=== PATIENT | male | born 1995 | race African-American/Black ===

== ENCOUNTER 2016-09-14 18:50 | Inpatient (IN) | payer OTHER ==
[~2016-09-14] VITALS: Ht 175.3 cm; Wt 83.9 kg
[2016-09-14] MEDS ORDERED: [UNRECOGNIZED DRUG - OTHER] PO (19:05)
[2016-09-14 21:27] LABS: MEAN CORPUSCULAR HEMOGLOBIN 29.2 pg (27.0-33.0); MEAN CORPUSCULAR HGB CONC 32.9 g/dl (32.0-36.5); MEAN CORPUSCULAR VOLUME 88.6 fl (80.0-96.0); RED CELL DISTRIBUTION WIDTH 13.7 % (11.5-14.5); WHITE BLOOD COUNT 5.3 K/mm3 (4.0-10.0)
[2016-09-14 22:00] LABS: ALBUMIN 4.8 GM/DL (3.2-5.2); ALBUMIN/GLOBULIN RATIO 1.26 (1.00-1.93); ALKALINE PHOSPHATASE 96 U/L (45-117); ALT/SGPT 31 U/L (12-78); ANION GAP 9 MEQ/L (8-16); AST/SGOT 25 U/L (15-37); BILIRUBIN,DIRECT 0.1 MG/DL (0.0-0.2); BILIRUBIN,TOTAL 0.7 MG/DL (0.2-1.0); BLOOD UREA NITROGEN 14 MG/DL (7-18); CALCIUM LEVEL 9.2 MG/DL (8.5-10.1); CARBON DIOXIDE LEVEL 28 MEQ/L (21-32); CHLORIDE LEVEL 103 MEQ/L (98-107); CREATININE FOR GFR 0.92 MG/DL (0.70-1.30); GLOMERULAR FILTRATION RATE > 60.0 (>60); GLUCOSE, FASTING 77 MG/DL (70-105); POTASSIUM SERUM 3.8 MEQ/L (3.5-5.1); SODIUM LEVEL 140 MEQ/L (136-145); TOTAL PROTEIN 8.6 GM/DL (6.4-8.2)
[2016-09-14 22:18] LABS: CONTROL LINE INT CTR LINE PRESENT; METHADONE URINE NEGATIVE (NEGATIVE); TRICYCLIC ANTIDEPRESS URINE NEGATIVE (NEGATIVE)
[2016-09-14] MEDS ORDERED: [UNRECOGNIZED DRUG - OTHER] PO (23:49)
[2016-09-15] MEDS ORDERED: LORazepam 1 MG TAB PO PRN (00:15)
[2016-09-15] MEDS ORDERED: MAALOX 30 ML SUSP *UDC PO PRN (00:15)
[2016-09-15] MEDS ORDERED: ACETAMINOPHEN TAB 650MG DOSE (2X325MG) PO PRN (00:15)
[2016-09-15] MEDS ORDERED: MOM 30ML SUSPENSION UDC PO PRN (00:15)
[2016-09-15 01:44] VITALS: BP 132/82
--- NOTE | 2016-09-15 10:31 | HPEPDOC ---
Medical History and Physical Date of Admission Sep 14, 2016 at 22:56 History and Physical PCP: [facility] ATTENDING: Dr. Abhay Red HPI: 21yoM admitted to [facility] for unspecified depressive disorder, being medically examined today. No acute medical complaints today. Denies any fevers, chills, weakness, fatigue, TIRADO, CP, SOB, cough, palpitations, abdominal pain, N/V /D or changes in bowel or bladder habits. 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 PE: GEN: 21 yoM, appears stated age. Well-nourished, well developed. No acute distress. Alert and oriented x 3. Pleasant, interactive. HEENT: Normocephalic, atraumatic. Pupils are equal, round, and reactive to light. Extraocular movements are intact. No nystagmus appreciated. Sclera are nonicteric. Conjunctiva without injection. Nose midline. Nasal turbinates without bogginess. EACs both patent BL. TMs both visualized and villasenor with good cone of light, no bulging or erythema. No facial asymmetry. Moist mucous membranes. Dentition fair. Pharynx pink and moist, no cobblestoning. Neck supple , trachea midline. No lymphadenopathy or thyromegaly appreciated. CHEST: Regular rate and rhythm, +S1, +S2 LUNGS: Clear to auscultation bilaterally. No wheezes, rales, or rhonchi. Breathing appears symmetric and easy. Patient is speaking in full sentences. No accessory muscle use. ABD: Round, soft, non-tender, non-distended. +Bowel sounds throughout. No rebound or guarding. No costovertebral angle tenderness. EXT: Pulses 2+ bilaterally dorsalis pedis and radial. No lower extremity edema appreciated. SKIN: [place], dry, warm. Capillary refill <2sec. No rashes. NEURO: Alert and oriented x 3. Cranial nerves III-XII are intact. No focal deficits appreciated. EK09/07/15 SINUS BRADYCARDIA 48bpm EARLY REPOLARIZATION NO PRIOR FOR COMPARISON A&P: 21yoM admitted to [facility] for unspecified depressive disorder 1. Psych. Plan per Psychiatry. EKG on file. 2. Borderline EKG. No cardiac signs or symptoms appreciated on exam, follow with PCP. 3. Follow up with PCP on discharge. 4. abn TSH. Recheck TSH/Free T4. 5. Staff member present throughout exam, imani Ramos. Vital Signs Vital Signs Label Value Date Time Patient Temperature 95.9 degrees F 09/15/16 014 Temperature Source Tympanic 09/15/16 014 Pulse 52 09/15/16 014 Respiratory Rate 18 bpm 09/15/16 014 Blood Pressure Assessment 132/82 (99) 09/15/16 0144 Laboratory Data Labs 24H Laboratory Tests 2 09/14/16 21:17: Acetaminophen Level < 2.0L, Aspartate Amino Transf (AST/SGOT) 25, Alanine Aminotransferase (ALT/SGPT) 31, Alkaline Phosphatase 96, Total Bilirubin 0.7, Direct Bilirubin 0.1, Albumin 4.8, Albumin/Globulin Ratio 1.26, Anion Gap 9, Calcium Level 9.2, Ethyl Alcohol Level < 0.003, Glomerular Filtration Rate > 60.0, Salicylates Level < 1.7L, Thyroid Stimulating Hormone (TSH) 5.450H, Total Protein 8.6H 09/14/16 21:36: Urine Amphetamines Screen NEGATIVE, Urine Benzodiazepines Screen NEGATIVE, Urine Opiates Screen NEGATIVE, Urine Barbiturates Screen NEGATIVE, Urine Cannabinoids Screen NEGATIVE, Urine Cocaine Metabolite Screen NEGATIVE, Urine Methadone Screen NEGATIVE, Urine Tricyclic Antidepressants NEGATIVE CBC/BMP Laboratory Tests 09/14/16 21:17 Red Blood Count 4.96, Mean Corpuscular Volume 88.6, Mean Corpuscular Hemoglobin 29.2, Mean Corpuscular Hemoglobin Concent 32.9, Red Cell Distribution Width 13.7 Home Medications Scheduled ([Hydroxycut Hardcore]) 1 CAP PO DAILY Allergies Coded Allergies: Penicillins (Verified Allergy, Unknown, 09/14/16) Marly Newman Sep 15, 2016 10:31
[2016-09-15 12:00] VITALS: BP 130/80
[2016-09-15] MEDS ORDERED: FLUoxetine 10 MG CAP PO ONE (16:15)
[2016-09-15 18:00] VITALS: BP 120/71
[2016-09-15] MEDS: hydrOXYzine 50 MG TAB PO PRN (20:36)
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
[2016-09-16 06:37] VITALS: BP 123/74
[2016-09-16] MEDS ORDERED: FLUoxetine 20 MG CAP PO SCH (09:00)
[2016-09-16] MEDS ORDERED: FLUoxetine 10 MG CAP PO SCH (09:00)
[2016-09-16 12:39] LABS: FREE T4 0.94 NG/DL (0.76-1.46)
[2016-09-16] MEDS: hydrOXYzine 50 MG TAB PO PRN (14:04)
[2016-09-16 18:00] VITALS: BP 118/60
--- NOTE | 2016-09-16 18:14 | IPNPDOC ---
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 Toy Maker met with patient today to assess treatment progress on inpatient unit. Patient has been isolating to room, has not been attending groups, is observed to be sleeping in bed but is easily roused and sits up to meet with sign writer letterer or painter for assessment purposes. Patient rates his current anxiety level is 7/10, depression 8/10, denies suicidal and homicidal ideation, denies audiovisual hallucinations, and denies urge to engage in self-injurious behavior. Patient denies symptoms of mood lability. Toy Maker spoke at length with patient about ER notes indicating 's report of erratic sleep, rapid mood swings, stomach and genitalia discomfort. Patient denies stomach discomfort, endorses erratic sleep but attributes to stress and depression, denies rapid mood swings noting, "that's what my says to make me feel like there is something wrong with me and when she wants me to go get help," indicates he experiences intermittent testicular pain but only after working out. Patient denies anger at time of assessment, but indicates prior to hospitalization he had been experiencing anger multiple times per day, however, denies rapid change to mood in the absence of situational stressors. Patient took second dose of Prozac this morning, denies medication side effects. Patient denies symptoms of pain at time of interaction and presents with no sign of acute distress. Patient states he has had telephone contact with his which resulted in an argument, notes he is not sure if he wants to continue the relationship. 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 VITAL SIGNS: See below. NEW TEST RESULTS: No new results. Patient denies chronic medical conditions, denies history of seizure and TBI. Labs on admission indicate low PLT, elevated TSH and protein. TSH within normal limits on recheck. UDS negative on admission EKG pending CURRENT MEDICATIONS: See below. MENTAL STATUS EXAMINATION: Patient is a 21-year-old male who is pleasant and cooperative, dressed in hospital clothing, exhibits adequate personal hygiene, makes good eye contact , is of average build, has been observed ambulating with steady gait, and appears stated age. Speech: Is of normal rate, rhythm, volume, coherent, spontaneous Language skills are intact. Thought processes: Clear, goal-directed. Thought content: Rational, logical, no paranoia noted. Abstract reasoning, and computation: Requires further assessment. Description of associations: Intact. Description of abnormal or psychotic thoughts: denies hallucinations, delusions , preoccupation with violence, homicidal or suicidal ideation, and obsessions]. Judgment: Poor. Insight: Poor. Orientation to time, place and person. Recent and remote memory: Appears intact Attention span and concentration: Within normal limits. Language: Normal. Fund of knowledge: Adequate. Mood: "Depressed." Appears depressed, anxious, no mood lability noted, no anger noted Affect: Blunted, congruent with mood DIAGNOSES: Unspecified mood disorder, rule out major depressive disorder, rule out bipolar disorder, rule out adjustment disorder with mixed anxiety and depressed mood, rule out PTSD ASSESSMENT: Patient appears to be adjusting to unit, was encouraged to attend groups and participate in unit programming to facilitate the development of coping mechanisms and reduce isolative behavior. Patient has utilized hydroxyzine 50 mg 2 to address anxiety/sleep challenges, notes medication is effective and denies medication side effects. Patient is currently taking Prozac 10 mg po q am, denies medication side effects, will increase dose to 20 mg po q am starting tomorrow. Patient is aware he also has trazodone available to him for sleep if desired. Will monitor patient's response to medication and watch for mood instability, monitor for side effects, and evaluate for resolution of suicidal ideation and discharge readiness. Patient denies suicidal ideation and verbalizes awareness of how to access supportive services on the unit if needed. Patient reiterates today at time of discharge he wants to return to [place] to participate in outpatient behavioral health for psychotherapy and medication management services. MANAGEMENT PLAN: Increase Prozac to 20 mg po q am, continue hydroxyzine 50 mg po q 6 hours PRN anxiety/sleep Maintain safety precautions Patient to attend groups and participate in unit programming to develop coping strategies Engage patient in discharge planning process and arrange meeting with command to ensure safe discharge planning when appropriate Patient to follow up with [facility] upon discharge TIME SPENT: 35 minutes. Vital Signs Vital Signs Date Time Temp Pulse Resp B/P Pulse Ox O2 Delivery O2 Flow Rate FiO2 09/16/16 06:37 95.9 77 16 123/74 09/15/16 00:28 99 Room Air Laboratory Data 24H Labs Laboratory Tests 2 09/16/16 11:39: Free Thyroxine 0.94, Thyroid Stimulating Hormone (TSH) 1.360 Current Medications Current Medications Acetaminophen (Tylenol Tab) 650 mg Q6HP PRN PO HEADACHE or DISCOMFORT; Start at 00:15; Stop 10/15/16 at 00:14 Al Hydrox/Mg Hydrox/Simethicone (Mylanta) 30 ml Q4HP PRN PO HEARTBURN/ INDIGESTION; Start 09/15/16 at 00:15; Stop 10/15/16 at 00:14 Fluoxetine HCl (PROzac) 10 mg QAM PO Last administered on 09/16/16 09:17; Start 09/16/16 at 09:00; Stop 10/16/16 at 08:59 Fluoxetine HCl (PROzac) 20 mg QAM PO ; Start 09/16/16 at 09:00; Stop 09/16/16 at 09:00; Status DC Home Med (Med Rec Complete!) ASDIRECTED XX ; Start 09/15/16 at 00:00; Stop at 00:00; Status DC Hydroxyzine HCl (Atarax) 50 mg Q6HP PRN PO ANXIETY Last administered on 14:04; Start 09/15/16 at 16:30; Stop 10/15/16 at 16:29 Lorazepam (Ativan) 1 mg Q4HP PRN PO ANXIETY/AGITATION; Start 09/15/16 at 00:15; Stop 09/22/16 at 00:14 Magnesium Hydroxide (Milk Of Magnesia) 30 ml DAILYPRN PRN PO CONSTIPATION; Start 09/15/16 at 00:15; Stop 10/15/16 at 00:14 Trazodone HCl (Desyrel) 50 mg QHSP PRN PO INSOMNIA; Start 09/15/16 at 00:15; Stop 10/15/16 at 00:14 Allergies Coded Allergies: Penicillins (Verified Allergy, Unknown, 09/14/16) Rosana Mclaughlin Sep 16, 2016 18:14
[2016-09-16] MEDS: traZODone 50 MG TAB PO PRN (21:09)
[2016-09-17 07:23] VITALS: BP 107/58
[2016-09-17] MEDS: FLUoxetine 20 MG CAP PO SCH (08:15)
[2016-09-17] MEDS: hydrOXYzine 50 MG TAB PO PRN ×2 (08:15→20:46)
--- NOTE | 2016-09-17 13:58 | IPNPDOC ---
[facility] Progress Note Progress Note DATE OF SERVICE: 09/17/16 HISTORY: Patient is a 21-year-old, , father of 1 child, [employer] duty [employer] who reportedly while arguing with his indicated that he was going to kill himself. Product Development Coordinator met with patient today to assess treatment progress on inpatient unit. Patient has been isolating to room, has not been attending groups, is observed to be sleeping in bed but is easily roused and sits up to meet with typewriter ribbon winder for assessment purposes. Patient informs typewriter ribbon winder today he is "thinking about may be attending a group today." Patient rates his current anxiety level is 5/10, depression 8/10, denies suicidal and homicidal ideation, denies audiovisual hallucinations, and denies urge to engage in self- injurious behavior. Patient denies symptoms of anger and mood lability. Patient took increased Prozac dose this morning, utilized Trazodone fr sleep last night and has been taking hydroxyzine 50 mg approximately one time per day for symptoms of anxiety. Patient reports improvement to sleep and denies nightmares. Patient informs typewriter ribbon winder "I might be starting to feel little better today," indicates medication regimen is helpful and he denies medication side effects. Patient states he also spoke with his yesterday and conversation went well, is today requesting visitation with his 3-month-old child over the weekend. Patient denies symptoms of pain at time of interaction and presents with no sign of acute distress. Addendum: With patient's permission and signed MAVERICK, update provided to patient' s first sergeant regarding patient's treatment status. VITAL SIGNS: See below. NEW TEST RESULTS: No new results. Patient denies chronic medical conditions, denies history of seizure and TBI. Labs on admission indicate low PLT, elevated TSH and protein. TSH within normal limits on recheck. UDS negative on admission EK09/07/15 SINUS BRADYCARDIA 48bpm EARLY REPOLARIZATION NO PRIOR FOR COMPARISON CURRENT MEDICATIONS: See below. MENTAL STATUS EXAMINATION: Patient is a 21-year-old male who is pleasant and cooperative, dressed in hospital clothing, exhibits adequate personal hygiene, makes fair eye contact , is of average build, has been observed ambulating with steady gait, and appears stated age. Speech: Is of normal rate, rhythm, volume, coherent, spontaneous Language skills are intact. Thought processes: Clear, goal-directed. Thought content: Rational, logical, no paranoia noted. Abstract reasoning, and computation: Requires further assessment. Description of associations: Intact. Description of abnormal or psychotic thoughts: denies hallucinations, delusions , preoccupation with violence, homicidal or suicidal ideation, and obsessions]. Judgment: Poor. Insight: Poor. Orientation to time, place and person. Recent and remote memory: Appears intact Attention span and concentration: Within normal limits. Language: Normal. Fund of knowledge: Adequate. Mood: "I'm still depressed but maybe a little less depressed today." Appears depressed, anxious, no mood lability noted, no anger noted Affect: Blunted, congruent with mood DIAGNOSES: Unspecified mood disorder, rule out major depressive disorder, rule out bipolar disorder, rule out adjustment disorder with mixed anxiety and depressed mood, rule out PTSD ASSESSMENT: Patient appears to be adjusting to unit but has not been attending groups, was again encouraged to attend groups and participate in unit programming to facilitate the development of coping mechanisms and reduce isolative behavior. Patient has utilized hydroxyzine 50 mg PRN to address anxiety and Trazodone 50 mg PRN to address sleep challenges, notes medication is effective. Patient is now taking Prozac 20 mg po q am, denies medication side effects. Will continue to monitor patient's response to medication and watch for mood instability, monitor for side effects, and evaluate for resolution of suicidal ideation and discharge readiness. Patient denies suicidal ideation and verbalizes awareness of how to access supportive services on the unit if needed. Patient reiterates today at time of discharge he wants to return to [place] to participate in outpatient behavioral health for psychotherapy and medication management services. MANAGEMENT PLAN: Continue Prozac 20 mg po q am, hydroxyzine 50 mg po q 6 hours PRN anxiety/sleep, trazodone 50 mg po q 6 hours PRN anxiety Patient's and 3-month-old baby may visit in quite group room during visitation hours over weekend at staff discretion Maintain safety precautions Patient to attend groups and participate in unit programming to develop coping strategies Engage patient in discharge planning process and arrange meeting with command to ensure safe discharge planning when appropriate Patient to follow up with [facility] upon discharge TIME SPENT: 35 minutes. Vital Signs Vital Signs Date Time Temp Pulse Resp B/P Pulse Ox O2 Delivery O2 Flow Rate FiO2 09/17/16 07:23 95.4 52 18 107/58 09/15/16 00:28 99 Room Air Current Medications Current Medications Acetaminophen (Tylenol Tab) 650 mg Q6HP PRN PO HEADACHE or DISCOMFORT; Start at 00:15; Stop 10/15/16 at 00:14 Al Hydrox/Mg Hydrox/Simethicone (Mylanta) 30 ml Q4HP PRN PO HEARTBURN/ INDIGESTION; Start 09/15/16 at 00:15; Stop 10/15/16 at 00:14 Fluoxetine HCl (PROzac) 10 mg QAM PO Last administered on 09/16/16 09:17; Start 09/16/16 at 09:00; Stop 09/16/16 at 18:18; Status DC Fluoxetine HCl (PROzac) 20 mg QAM PO ; Start 09/16/16 at 09:00; Stop 09/16/16 at 09:00; Status DC Fluoxetine HCl (PROzac) 20 mg QAM PO Last administered on 09/17/16 08:15; Start 09/17/16 at 09:00; Stop 10/17/16 at 08:59 Home Med (Med Rec Complete!) ASDIRECTED XX ; Start 09/15/16 at 00:00; Stop at 00:00; Status DC Hydroxyzine HCl (Atarax) 50 mg Q6HP PRN PO ANXIETY Last administered on 08:15; Start 09/15/16 at 16:30; Stop 10/15/16 at 16:29 Lorazepam (Ativan) 1 mg Q4HP PRN PO ANXIETY/AGITATION; Start 09/15/16 at 00:15; Stop 09/22/16 at 00:14 Magnesium Hydroxide (Milk Of Magnesia) 30 ml DAILYPRN PRN PO CONSTIPATION; Start 09/15/16 at 00:15; Stop 10/15/16 at 00:14 Trazodone HCl (Desyrel) 50 mg QHSP PRN PO INSOMNIA Last administered on 21:09; Start 09/15/16 at 00:15; Stop 10/15/16 at 00:14 Allergies Coded Allergies: Penicillins (Verified Allergy, Unknown, 09/14/16) Rosana Mclaughlin Sep 17, 2016 13:58
[2016-09-17 18:00] VITALS: BP 124/68
[2016-09-17] MEDS: traZODone 50 MG TAB PO PRN (20:46)
[2016-09-18 06:54] VITALS: BP 125/63
[2016-09-18] MEDS: hydrOXYzine 50 MG TAB PO PRN ×3 (08:36→21:21)
[2016-09-18] MEDS: FLUoxetine 20 MG CAP PO SCH (08:36)
[2016-09-18 18:00] VITALS: BP 113/62
[2016-09-19 06:00] VITALS: BP 125/78
[2016-09-19] MEDS: hydrOXYzine 50 MG TAB PO PRN ×3 (08:22→21:20)
[2016-09-19] MEDS: FLUoxetine 20 MG CAP PO SCH (08:22)
--- NOTE | 2016-09-19 09:36 | IPN ---
DATE: 09/18/2016 SUBJECTIVE: " I am feeling better." "I am sleeping a lot." OBJECTIVE: Patient is improving slowly, he is less depressed, he is able to contract for safety, and denies suicidal or homicidal ideation during the interview. There is no evidence of psychotic symptoms, no auditory or visual hallucinations or delusions. MENTAL STATUS EXAMINATION: Patient is dressed in [facility]. Patient is cooperative during the exam. Speech is slow and monotone but improving. Mood is depressed but improved. Affect is somewhat restricted. No delusions or hallucinations. Memory is fair. Patient is fully oriented. Associations are intact. Thinking is logical. Thought content is appropriate. Patient is able to contract for safety and denies suicidal or homicidal ideation during the interview. Insight and judgment is fair. ASSESSMENT: 1. Depression. 2. Suicidal ideation. PLAN: 1. Continue with Prozac 20 mg by mouth every morning. 2. Continue with trazodone 50 mg at bedtime. 3. Continue medication management and individual and group and therapy.
[2016-09-19 18:00] VITALS: BP 136/84
[2016-09-19] MEDS: traZODone 50 MG TAB PO PRN (21:20)
[2016-09-20 06:23] VITALS: BP 114/57
[2016-09-20] MEDS: FLUoxetine 20 MG CAP PO SCH (08:05)
[2016-09-20] MEDS: hydrOXYzine 50 MG TAB PO PRN ×2 (08:06→15:29)
[2016-09-20 18:00] VITALS: BP 121/69
[2016-09-20] MEDS: traZODone 50 MG TAB PO PRN (21:15)
--- NOTE | 2016-09-21 02:27 | IPN ---
DATE: 09/19/2016 SUBJECTIVE: " I am feeling better." OBJECTIVE: Patient reports improvement. Patient denies feeling depressed. Patient denies suicidal ideation. There is no evidence of psychotic symptoms, no auditory or visual hallucinations or delusions. Patient denies side effects from the medication. MENTAL STATUS EXAMINATION: Patient is dressed in [facility]. Patient is calm and cooperative, has fair eye contact. Speech is normal in rate, volume and articulation and is coherent and spontaneous. Mood is euthymic. Affect is congruent with mood. No delusions or hallucinations. Memory is fair. Patient is fully oriented. Associations are intact. Thinking is logical. Thought content is appropriate. Patient is denying suicidal or homicidal ideation. Insight and judgment are fair. ASSESSMENT: 1. Depression. 2. Suicidal ideation. PLAN: 1. Continue Prozac 20 mg by mouth every morning. 2. Continue trazodone as needed for insomnia. 3. Continue medication management and individual and group and therapy.
[2016-09-21 06:28] VITALS: BP 132/80
[2016-09-21] MEDS: hydrOXYzine 50 MG TAB PO PRN ×3 (07:58→20:52)
[2016-09-21] MEDS: FLUoxetine 20 MG CAP PO SCH (07:58)
[2016-09-21] MEDS: traZODone 50 MG TAB PO PRN (20:52)
--- NOTE | 2016-09-21 21:03 | IPNPDOC ---
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 Rubber Chemist met with patient today to assess treatment progress on inpatient unit. Patient continues to isolate to room, indicates to advertising writer he does not enjoy being in the group setting and does not intend to attend groups. Patient informs advertising writer that his brother is coming to visit for a week tomorrow, is requesting discharge to spend time with his brother, his and his child. Patient indicates he and have "worked things out," states he feels being at home with his brother and would be beneficial to his mental health, adds he would like to begin attending marital counseling with his . Patient reports current depression level of 5/10, anxiety 3/10, notes he has been taking Atarax as needed to address symptoms of anxiety with good effect. Patient denies suicidal and homicidal ideation, denies audiovisual hallucinations, denies urge to engage in self-injurious behavior. Patient indicates current medication regimen is effective noting, "I'm not angry anymore and I feel more understanding when I'm talking with my ." Patient denies symptoms of mood lability, continues to take trazodone for sleep with good effect, denies current symptoms of nightmares, today reports history of nightmares prior to hospitalization. Patient denies symptoms of physical pain at time of interaction and presents with no sign of acute distress. Addendum: With patient's permission and signed MAVERICK, update provided to patient' s first sergeant regarding patient's treatment status. VITAL SIGNS: See below. NEW TEST RESULTS: No new results. Patient denies chronic medical conditions, denies history of seizure and TBI. Labs on admission indicate low PLT, elevated TSH and protein. TSH within normal limits on recheck. UDS negative on admission EK09/07/15 SINUS BRADYCARDIA 48bpm EARLY REPOLARIZATION NO PRIOR FOR COMPARISON CURRENT MEDICATIONS: See below. MENTAL STATUS EXAMINATION: Patient is a 21-year-old male who is pleasant and cooperative, dressed in hospital clothing, exhibits adequate personal hygiene, makes improved eye contact, is of average build, has been observed ambulating with steady gait, and appears stated age. Speech: Is of normal rate, rhythm, volume, coherent, spontaneous Language skills are intact. Thought processes: Clear, goal-directed. Thought content: Rational, logical, no paranoia noted. Abstract reasoning, and computation: Requires further assessment. Description of associations: Intact. Description of abnormal or psychotic thoughts: denies hallucinations, delusions , preoccupation with violence, homicidal or suicidal ideation, and obsessions]. Judgment: Fair, some improvement Insight: Adequate, is improving Orientation to time, place and person. Recent and remote memory: Appears intact Attention span and concentration: Within normal limits. Language: Normal. Fund of knowledge: Adequate. Mood: "I still feel depressed sometimes but I'm able to deal with it better now and I'm feeling better." Appears less depressed and anxious, no mood lability noted, no anger noted Affect: Constricted, congruent with mood DIAGNOSES: Unspecified mood disorder, rule out major depressive disorder, rule out bipolar disorder, rule out adjustment disorder with mixed anxiety and depressed mood, rule out PTSD ASSESSMENT: Patient appears to be adjusting to unit but has not been attending groups, was again encouraged to attend groups and participate in unit programming to facilitate the development of coping mechanisms and reduce isolative behavior. Patient has utilized hydroxyzine 50 mg PRN to address anxiety and Trazodone 50 mg PRN to address sleep challenges, notes medication is effective. Patient continues to take Prozac 20 mg po q am, denies medication side effects, notes medication is helping. Will continue to monitor patient's response to medication and watch for mood instability, monitor for side effects , and evaluate for resolution of suicidal ideation and discharge readiness. Patient denies suicidal ideation and verbalizes awareness of how to access supportive services on the unit if needed. Patient reiterates today at time of discharge he wants to return to [place] to participate in outpatient behavioral health for psychotherapy and medication management services. research coordinator has been asked to arranged chain of command meeting in an effort to begin making discharge plans for patient. MANAGEMENT PLAN: Continue Prozac 20 mg po q am, hydroxyzine 50 mg po q 6 hours PRN anxiety/sleep, trazodone 50 mg po q hs for insomnia Patient's and 3-month-old baby may visit in quite group room during visitation hours over weekend at staff discretion Maintain safety precautions Patient to attend groups and participate in unit programming to develop coping strategies Engage patient in discharge planning process and arrange meeting with command to ensure safe discharge planning when appropriate Patient to follow up with [facility] upon discharge TIME SPENT: 35 minutes. Vital Signs Vital Signs Date Time Temp Pulse Resp B/P Pulse Ox O2 Delivery O2 Flow Rate FiO2 09/21/16 06:28 96.0 70 16 132/80 09/18/16 08:53 Room Air 09/15/16 00:28 99 Current Medications Current Medications Acetaminophen (Tylenol Tab) 650 mg Q6HP PRN PO HEADACHE or DISCOMFORT; Start at 00:15; Stop 10/15/16 at 00:14 Al Hydrox/Mg Hydrox/Simethicone (Mylanta) 30 ml Q4HP PRN PO HEARTBURN/ INDIGESTION; Start 09/15/16 at 00:15; Stop 10/15/16 at 00:14 Fluoxetine HCl (PROzac) 10 mg QAM PO Last administered on 09/16/16 09:17; Start 09/16/16 at 09:00; Stop 09/16/16 at 18:18; Status DC Fluoxetine HCl (PROzac) 20 mg QAM PO ; Start 09/16/16 at 09:00; Stop 09/16/16 at 09:00; Status DC Fluoxetine HCl (PROzac) 20 mg QAM PO Last administered on 09/21/16 07:58; Start 09/17/16 at 09:00; Stop 10/17/16 at 08:59 Home Med (Med Rec Complete!) ASDIRECTED XX ; Start 09/15/16 at 00:00; Stop at 00:00; Status DC Hydroxyzine HCl (Atarax) 50 mg Q6HP PRN PO ANXIETY Last administered on 20:52; Start 09/15/16 at 16:30; Stop 10/15/16 at 16:29 Lorazepam (Ativan) 1 mg Q4HP PRN PO ANXIETY/AGITATION Last administered on 21:15; Start 09/15/16 at 00:15; Stop 09/21/16 at 12:11; Status DC Magnesium Hydroxide (Milk Of Magnesia) 30 ml DAILYPRN PRN PO CONSTIPATION; Start 09/15/16 at 00:15; Stop 10/15/16 at 00:14 Trazodone HCl (Desyrel) 50 mg QHSP PRN PO INSOMNIA Last administered on t 20:52; Start 09/15/16 at 00:15; Stop 10/15/16 at 00:14 Allergies Coded Allergies: Penicillins (Verified Allergy, Unknown, 09/14/16) Rosana Mclaughlin Sep 21, 2016 21:02
[2016-09-21 22:21] VITALS: BP 143/80
[2016-09-22 06:23] VITALS: BP 131/82
[2016-09-22] MEDS: FLUoxetine 20 MG CAP PO SCH (08:03)
[2016-09-22] MEDS: hydrOXYzine 50 MG TAB PO PRN (08:03)
[2016-09-22] MEDS ORDERED: HYDRO50TAB PO (09:34)
[2016-09-22] MEDS ORDERED: FLUO20CA9 PO (09:34)
[2016-09-22] MEDS ORDERED: TRAZO50TA PO (09:34)
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
[2016-09-22] MEDS ORDERED: PROZ20CA11 PO (13:44)
[2016-09-22] MEDS ORDERED: TRAZ50TA4 PO (13:44)
[2016-09-22] MEDS ORDERED: HYDR-4274 PO (13:44)
== END 2016-09-22 11:15 | disposition home or self-care (01) | DRG 882 ==
LOC: M ED 22:00 → M ED INP 22:56 → M PSY 09-15 00:32
PROVIDERS: ADMIT Psychiatry & Neurology Psychiatry; ATTEND Psychiatry & Neurology Psychiatry
DX: F43.23 Adjustment disorder with mixed anxiety and depressed mood (principal); R45.851 Suicidal ideations; F31.9 Bipolar disorder, unspecified; F43.10 Post-traumatic stress disorder, unspecified; R94.6 Abnormal results of thyroid function studies; R94.31 Abnormal electrocardiogram [ECG] [EKG]; Z81.8 Family history of other mental and behavioral disorders; Z88.0 Allergy status to penicillin; Z79.899 Other long term (current) drug therapy

== ENCOUNTER 2016-11-05 00:19 | Inpatient (IN) | payer OTHER ==
[~2016-11-05] VITALS: Ht 175.3 cm; Wt 84.8 kg
[~2016-11-05 00:19] MED LIST: FLUO20CA9 PO; HYDR-4274 PO; HYDRO50TAB PO; PROZ20CA11 PO; TRAZ50TA4 PO; TRAZO50TA PO; [UNRECOGNIZED DRUG - OTHER] PO; [UNRECOGNIZED DRUG - OTHER] PO
[2016-11-05 00:59] LABS: MEAN CORPUSCULAR HEMOGLOBIN 28.9 pg (27.0-33.0); MEAN CORPUSCULAR VOLUME 87.5 fl (80.0-96.0); RED CELL DISTRIBUTION WIDTH 12.9 % (11.5-14.5); WHITE BLOOD COUNT 5.3 K/mm3 (4.0-10.0)
[2016-11-05 01:26] LABS: METHADONE URINE NEGATIVE (NEGATIVE)
[2016-11-05 01:29] LABS: ALBUMIN 4.1 GM/DL (3.2-5.2); ALBUMIN/GLOBULIN RATIO 1.11 (1.00-1.93); ALKALINE PHOSPHATASE 75 U/L (45-117); ALT/SGPT 52 U/L (12-78); ANION GAP 11 MEQ/L (8-16); AST/SGOT 44 U/L (15-37); BILIRUBIN,DIRECT < 0.1 MG/DL (0.0-0.2); BILIRUBIN,TOTAL 0.3 MG/DL (0.2-1.0); BLOOD UREA NITROGEN 9 MG/DL (7-18); CALCIUM LEVEL 8.7 MG/DL (8.5-10.1); CARBON DIOXIDE LEVEL 27 MEQ/L (21-32); CHLORIDE LEVEL 103 MEQ/L (98-107); CREATININE FOR GFR 0.86 MG/DL (0.70-1.30); GLOMERULAR FILTRATION RATE > 60.0 (>60); GLUCOSE, FASTING 121 MG/DL (70-105); POTASSIUM SERUM 3.4 MEQ/L (3.5-5.1); SODIUM LEVEL 141 MEQ/L (136-145); TOTAL PROTEIN 7.8 GM/DL (6.4-8.2)
[2016-11-05] MEDS ORDERED: TRAZ100T4 PO (02:14)
[2016-11-05] MEDS ORDERED: GABA-282 PO (02:14)
[2016-11-05] MEDS ORDERED: LEXA1TAB2 PO (02:14)
[2016-11-05] MEDS ORDERED: ACAM0.05 PO (02:14)
[2016-11-05] MEDS ORDERED: MOM 30ML SUSPENSION UDC PO PRN (02:15)
[2016-11-05] MEDS ORDERED: MAALOX 30 ML SUSP *UDC PO PRN (02:15)
[2016-11-05 03:00] VITALS: BP 129/87
[2016-11-05] MEDS: FOLIC ACID 1 MG TAB PO SCH (09:00)
[2016-11-05] MEDS: MULTIVITAMINS/MINERALS THERAP 1 TAB PO SCH (09:00)
[2016-11-05] MEDS: THIAMINE 100 MG TAB PO SCH ×2 (09:00→21:01)
[2016-11-05] MEDS ORDERED: LORazepam 2 MG TAB PO PRN (09:30)
--- NOTE | 2016-11-05 09:59 | HPEPDOC ---
Medical History and Physical Date of Admission Nov 05, 2016 at 02:08 History and Physical PCP: [facility] ATTENDING: Dr. Abhay Red HPI: 21yoM admitted to [facility] for unspecified depressive disorder, being medically examined today. No acute medical complaints today. Denies any fevers, chills, weakness, fatigue, TIRADO, CP, SOB, cough, palpitations, abdominal pain, N/V /D or changes in bowel or bladder habits. 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 PE: GEN: 21 yoM, appears stated age. Well-nourished, well developed. No acute distress. Alert and oriented x 3. Pleasant, interactive. HEENT: Normocephalic, atraumatic. Pupils are equal, round, and reactive to light. Extraocular movements are intact. No nystagmus appreciated. Sclera are nonicteric. Conjunctiva without injection. Nose midline. Nasal turbinates without bogginess. EACs both patent BL. TMs both visualized and villas[place]or with good cone of light, no bulging or erythema. No facial asymmetry. Moist mucous membranes. Dentition fair. Pharynx pink and moist, no cobblestoning. Neck supple , trachea midline. No lymphadenopathy or thyromegaly appreciated. CHEST: Regular rate and rhythm, +S1, +S2 LUNGS: Clear to auscultation bilaterally. No wheezes, rales, or rhonchi. Breathing appears symmetric and easy. Patient is speaking in full sentences. No accessory muscle use. ABD: Round, soft, non-tender, non-distended. +Bowel sounds throughout. No rebound or guarding. No costovertebral angle tenderness. EXT: Pulses 2+ bilaterally dorsalis pedis and radial. No lower extremity edema appreciated. SKIN: [place], dry, warm. Capillary refill <2sec. No rashes. NEURO: Alert and oriented x 3. Cranial nerves III-XII are intact. No focal deficits appreciated. EK09/07/15 SINUS BRADYCARDIA 48bpm EARLY REPOLARIZATION NO PRIOR FOR COMPARISON A&P: 21yoM admitted to [facility] for unspecified depressive disorder 1. Psych. Plan per Psychiatry. EKG on file. 2. Borderline EKG. No cardiac signs or symptoms appreciated on exam, follow with PCP. 3. Follow up with PCP on discharge. 4. Abnormal TSH. Recheck thyroid profile. 5. Hypokalemia. Recheck CMP. 6. Abnormal LFT. Recheck CMP 7. 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 Vital Signs Vital Signs Date Time Temp Pulse Resp B/P Pulse Ox O2 Delivery O2 Flow Rate FiO2 11/05/16 03:00 97.3 64 16 129/87 11/05/16 02:50 98 Room Air Laboratory Data Labs 24H Laboratory Tests 2 11/05/16 00:47: Acetaminophen Level < 2.0L, Aspartate Amino Transf (AST/SGOT) 44H, Alanine Aminotransferase (ALT/SGPT) 52, Alkaline Phosphatase 75, Total Bilirubin 0.3, Direct Bilirubin < 0.1, Albumin 4.1, Albumin/Globulin Ratio 1.11, Anion Gap 11, Calcium Level 8.7, Ethyl Alcohol Level 0.006, Glomerular Filtration Rate > 60.0 , Salicylates Level < 1.7L, Thyroid Stimulating Hormone (TSH) 4.960H, Total Protein 7.8, Urine Amphetamines Screen NEGATIVE, Urine Benzodiazepines Screen NEGATIVE, Urine Opiates Screen NEGATIVE, Urine Barbiturates Screen NEGATIVE, Urine Cannabinoids Screen NEGATIVE, Urine Cocaine Metabolite Screen NEGATIVE, Urine Methadone Screen NEGATIVE, Urine Phencyclidine Screen NEGATIVE CBC/BMP Laboratory Tests 11/05/16 00:47 Red Blood Count 4.60, Mean Corpuscular Volume 87.5, Mean Corpuscular Hemoglobin 28.9, Mean Corpuscular Hemoglobin Concent 33.0, Red Cell Distribution Width 12.9 Home Medications Scheduled Acamprosate Calcium (Acamprosate Calcium Dr) 333 Mg Tab 666 MG PO TID Escitalopram Oxalate (Lexapro) 20 Mg Tab 20 MG PO DAILY Gabapentin (Gabapentin) 300 Mg Cap 300 MG PO TID Trazodone HCl (Trazodone HCl) 100 Mg Tab 100 MG PO QHS Allergies Coded Allergies: Penicillins (Verified Allergy, Unknown, 2/28/17) Marly Newman Nov 05, 2016 09:59
[2016-11-05] MEDS: GABAPENTIN 100 MG CAP PO SCH ×2 (11:19→21:01)
[2016-11-05] MEDS: SERTRALINE HCL 50 MG TAB PO SCH (11:19)
[2016-11-05 11:29] LABS: ANION GAP 6 MEQ/L (8-16); BLOOD UREA NITROGEN 10 MG/DL (7-18); CALCIUM LEVEL 8.9 MG/DL (8.5-10.1); CARBON DIOXIDE LEVEL 31 MEQ/L (21-32); CHLORIDE LEVEL 106 MEQ/L (98-107); CREATININE FOR GFR 0.86 MG/DL (0.70-1.30); GLOMERULAR FILTRATION RATE > 60.0 (>60); GLUCOSE, FASTING 96 MG/DL (70-105); POTASSIUM SERUM 4.3 MEQ/L (3.5-5.1); SODIUM LEVEL 143 MEQ/L (136-145)
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
[2016-11-05 18:00] VITALS: BP 115/62
[2016-11-05 18:10] VITALS: BP 60/115
[2016-11-05] MEDS: traZODone 50 MG TAB PO PRN (21:01)
[2016-11-06 06:18] VITALS: BP 128/58
[2016-11-06 07:28] LABS: ALBUMIN 3.8 GM/DL (3.2-5.2); ALBUMIN/GLOBULIN RATIO 1.03 (1.00-1.93); ALKALINE PHOSPHATASE 71 U/L (45-117); ALT/SGPT 58 U/L (12-78); ANION GAP 5 MEQ/L (8-16); AST/SGOT 34 U/L (15-37); BILIRUBIN,TOTAL 0.5 MG/DL (0.2-1.0); BLOOD UREA NITROGEN 12 MG/DL (7-18); CALCIUM LEVEL 8.7 MG/DL (8.5-10.1); CARBON DIOXIDE LEVEL 32 MEQ/L (21-32); CHLORIDE LEVEL 105 MEQ/L (98-107); CREATININE FOR GFR 1.02 MG/DL (0.70-1.30); GLOMERULAR FILTRATION RATE > 60.0 (>60); GLUCOSE, FASTING 92 MG/DL (70-105); POTASSIUM SERUM 4.5 MEQ/L (3.5-5.1); SODIUM LEVEL 142 MEQ/L (136-145); T UPTAKE 37 % (33-40); THYROXINE (T4) 6.7 UG/DL (4.5-12.0); TOTAL PROTEIN 7.5 GM/DL (6.4-8.2)
[2016-11-06] MEDS: FOLIC ACID 1 MG TAB PO SCH (08:27)
[2016-11-06] MEDS: SERTRALINE HCL 50 MG TAB PO SCH (08:27)
[2016-11-06] MEDS: MULTIVITAMINS/MINERALS THERAP 1 TAB PO SCH (08:27)
[2016-11-06] MEDS: THIAMINE 100 MG TAB PO SCH ×2 (08:27→21:13)
[2016-11-06] MEDS: GABAPENTIN 100 MG CAP PO SCH ×3 (08:27→21:13)
[2016-11-06 09:02] VITALS: BP 137/81
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
[2016-11-06 12:00] VITALS: BP 137/81
[2016-11-06] MEDS ORDERED: LOPERAMIDE 2 MG CAP PO PRN (13:30)
[2016-11-06] MEDS ORDERED: LOPERAMIDE 2 MG CAP PO ONE (14:00)
[2016-11-06 18:00] VITALS: BP 142/73
[2016-11-06] MEDS: traZODone 50 MG TAB PO PRN (21:13)
[2016-11-07 06:35] VITALS: BP 145/68
[2016-11-07] MEDS: THIAMINE 100 MG TAB PO SCH ×2 (08:36→21:49)
[2016-11-07] MEDS: FOLIC ACID 1 MG TAB PO SCH (08:36)
[2016-11-07] MEDS: SERTRALINE HCL 25 MG TABLET PO SCH (08:36)
[2016-11-07] MEDS: MULTIVITAMINS/MINERALS THERAP 1 TAB PO SCH (08:36)
[2016-11-07] MEDS: GABAPENTIN 100 MG CAP PO SCH ×3 (08:36→21:49)
[2016-11-07 10:13] VITALS: BP 145/60
[2016-11-07 11:42] VITALS: BP 133/74
--- NOTE | 2016-11-07 13:16 | IPNPDOC ---
[facility] Progress Note Progress Note DATE OF SERVICE: 11/07/16 HISTORY: 21 year old male with history of depression and alcohol abuse who was admitted on because his thought he wanted to overdose and called 911. he was brought to the Emergency room and was admitted to the [facility]. Has been on an antidepressant, Zoloft, because he stated Lexapro was not helping him. Today, he was seen alert, oriented x3, cooperative with interview, with good eye contact and good rapport. His mood is depressed/irritable and his affect is labile. His speech is normal, thought process is coherent, thought content is negative for homicidal ideations, delusional thoughts or altered perceptions, but is positive for passive suicidal thoughts. His recent and remote memory are intact, his abstract reasoning and computation are normal. His impulse control, judgement and insight are still very poor. When he was interviewed he admitted than in a scale from 1-10, his depression was at an 8 and he said he is still irritable, but less than when he was admitted. Denies active suicidal ideation but has passive suicidal ideation, denies homicidal ideation or psychosis. States he is anxious and feels better because he is going to be able to see his 5 month old son. He also states he is feeling slightly better, that he thinks he is having a better response to Zoloft than to Lexapro. VITAL SIGNS: See below. NEW TEST RESULTS: None CURRENT MEDICATIONS: See below. DIAGNOSES: 1. Major Depressive disorder, severe . 2. Substance abuse (alcohol) 3. PTSD ASSESSMENT:Patient is less guarded and defensive, less irritable. Responding to treatment. MANAGEMENT PLAN: continue hospitalization until stabilized.will need group home treatment. TIME SPENT: 15 minutes. Vital Signs Vital Signs Date Time Temp Pulse Resp B/P Pulse Ox O2 Delivery O2 Flow Rate FiO2 11/07/16 11:42 98.6 59 18 133/74 11/05/16 02:50 98 Room Air Current Medications Current Medications Acetaminophen (Tylenol Tab) 650 mg Q6HP PRN PO HEADACHE or DISCOMFORT; Start at 02:15; Stop 12/05/16 at 02:14 Al Hydrox/Mg Hydrox/Simethicone (Mylanta) 30 ml Q4HP PRN PO HEARTBURN/ INDIGESTION; Start 11/05/16 at 02:15; Stop 12/05/16 at 02:14 Folic Acid (Folic Acid) 1 mg DAILY PO Last administered on 11/07/16 08:36; Start 11/05/16 at 09:00; Stop 12/05/16 at 08:59 Gabapentin (Neurontin) 100 mg BID PO Last administered on 11/06/16 08:27; Start 11/05/16 at 09:00; Stop 11/06/16 at 09:21; Status DC Gabapentin (Neurontin) 200 mg TID PO Last administered on 11/07/16 08:36; Start 11/06/16 at 16:00; Stop 12/06/16 at 15:59 Home Med (Med Rec Complete!) ASDIRECTED XX ; Start 11/05/16 at 02:15; Stop at 02:18; Status DC Loperamide HCl (Imodium) 2 mg ASDIRECTED PRN PO DIARRHEA; Start 11/06/16 at 13: 30; Stop 12/06/16 at 13:29 Lorazepam (Ativan) 2 mg ASDIRECTED PRN PO SEE PROTOCOL; Start 11/05/16 at 09:30 ; Stop 11/12/16 at 09:29 Magnesium Hydroxide (Milk Of Magnesia) 30 ml DAILYPRN PRN PO CONSTIPATION; Start 11/05/16 at 02:15; Stop 12/05/16 at 02:14 Multivitamins (Theragram-M) 1 tab DAILY PO Last administered on 11/07/16 08:36 ; Start 11/05/16 at 09:00; Stop 12/05/16 at 08:59 Sertraline HCl (Zoloft) 50 mg QAM PO Last administered on 11/06/16 08:27; Start 11/05/16 at 09:00; Stop 11/06/16 at 09:21; Status DC Sertraline HCl (Zoloft) 75 mg DAILY PO Last administered on 11/07/16 08:36; Start 11/07/16 at 09:00; Stop 12/07/16 at 08:59 Thiamine HCl (Thiamine HCl) 100 mg BID PO Last administered on 11/07/16 08:36 ; Start 11/05/16 at 09:00; Stop 11/07/16 at 23:59 Trazodone HCl (Desyrel) 50 mg QHSP PRN PO INSOMNIA Last administered on t 21:13; Start 11/05/16 at 02:15; Stop 12/05/16 at 02:14 Allergies Coded Allergies: Penicillins (Verified Allergy, Unknown, 09/14/16) RAMIRO AYON MD Nov 07, 2016 13:16
[2016-11-07 18:00] VITALS: BP 130/74
[2016-11-07 21:00] VITALS: BP 128/82
[2016-11-07] MEDS: traZODone 50 MG TAB PO PRN (21:48)
[2016-11-08 06:42] VITALS: BP 115/68
[2016-11-08] MEDS: GABAPENTIN 100 MG CAP PO SCH ×3 (08:17→20:44)
[2016-11-08] MEDS: FOLIC ACID 1 MG TAB PO SCH (08:17)
[2016-11-08] MEDS: MULTIVITAMINS/MINERALS THERAP 1 TAB PO SCH (08:17)
[2016-11-08] MEDS: SERTRALINE HCL 25 MG TABLET PO SCH (08:17)
[2016-11-08 11:27] VITALS: BP 153/64
[2016-11-08 11:30] VITALS: BP 153/64
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
[2016-11-08 18:00] VITALS: BP 125/66
[2016-11-08] MEDS: traZODone 50 MG TAB PO PRN (20:44)
[2016-11-09 06:56] VITALS: BP 115/58
[2016-11-09] MEDS: FOLIC ACID 1 MG TAB PO SCH (08:56)
[2016-11-09] MEDS: SERTRALINE HCL 25 MG TABLET PO SCH (08:56)
[2016-11-09] MEDS: GABAPENTIN 100 MG CAP PO SCH (08:56)
[2016-11-09] MEDS: MULTIVITAMINS/MINERALS THERAP 1 TAB PO SCH (08:56)
[2016-11-09] MEDS: DIVALPROEX 250 MG TAB PO SCH ×2 (16:10→21:29)
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
[2016-11-09 18:00] VITALS: BP 126/79
[2016-11-09] MEDS: traZODone 50 MG TAB PO PRN (21:30)
[2016-11-10 06:33] VITALS: BP 125/58
[2016-11-10] MEDS: SERTRALINE 100 MG TAB PO SCH (08:34)
[2016-11-10] MEDS: DIVALPROEX 250 MG TAB PO SCH ×3 (08:34→20:57)
[2016-11-10] MEDS: FOLIC ACID 1 MG TAB PO SCH (08:34)
[2016-11-10] MEDS: ACETAMINOPHEN TAB 650MG DOSE (2X325MG) PO PRN ×2 (08:34→20:57)
[2016-11-10] MEDS: MULTIVITAMINS/MINERALS THERAP 1 TAB PO SCH (08:34)
[2016-11-10 12:00] VITALS: BP 116/65
[2016-11-10 18:00] VITALS: BP 136/69
[2016-11-10] MEDS: traZODone 50 MG TAB PO PRN (20:57)
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
[2016-11-11 06:35] VITALS: BP 136/63
[2016-11-11] MEDS: ACETAMINOPHEN TAB 650MG DOSE (2X325MG) PO PRN (08:56)
[2016-11-11] MEDS: SERTRALINE 100 MG TAB PO SCH (08:57)
[2016-11-11] MEDS: FOLIC ACID 1 MG TAB PO SCH (08:57)
[2016-11-11] MEDS: DIVALPROEX 250 MG TAB PO SCH ×3 (08:57→20:43)
[2016-11-11] MEDS: MULTIVITAMINS/MINERALS THERAP 1 TAB PO SCH (08:57)
[2016-11-11 09:00] VITALS: BP 136/63
[2016-11-11] MEDS ORDERED: DEPA250T32 PO (12:02)
[2016-11-11] MEDS ORDERED: ABIL5TAB5 PO (12:02)
[2016-11-11] MEDS ORDERED: MAALSUS20 PO (12:02)
[2016-11-11] MEDS ORDERED: MILKSUS PO (12:02)
[2016-11-11] MEDS ORDERED: FOLI1TAB2 PO (12:02)
[2016-11-11] MEDS ORDERED: TRAZ50TA4 PO (12:02)
[2016-11-11] MEDS ORDERED: TYLE325T5 PO (12:02)
[2016-11-11] MEDS ORDERED: ZOLO100T PO (12:02)
[2016-11-11] MEDS ORDERED: THERTAB30 PO (12:02)
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
[2016-11-11 18:00] VITALS: BP 130/73
[2016-11-11] MEDS: traZODone 50 MG TAB PO PRN (20:43)
[2016-11-12] MEDS: MULTIVITAMINS/MINERALS THERAP 1 TAB PO SCH (04:10)
[2016-11-12] MEDS: FOLIC ACID 1 MG TAB PO SCH (04:10)
[2016-11-12] MEDS: DIVALPROEX 250 MG TAB PO SCH (04:10)
[2016-11-12] MEDS: SERTRALINE 100 MG TAB PO SCH (04:10)
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
== END 2016-11-12 04:45 | DRG 882 ==
LOC: M ED 01:25 → M ED INP 02:08 → M PSY 03:00
PROVIDERS: ADMIT Psychiatry & Neurology Psychiatry; ATTEND Psychiatry & Neurology Psychiatry
DX: F43.10 Post-traumatic stress disorder, unspecified (principal); F32.2 Major depressive disorder, single episode, severe without psychotic features; F10.20 Alcohol dependence, uncomplicated; Z79.899 Other long term (current) drug therapy; Z81.8 Family history of other mental and behavioral disorders; E87.6 Hypokalemia; Z63.0 Problems in relationship with spouse or partner; Z62.810 Personal history of physical and sexual abuse in childhood; Z62.811 Personal history of psychological abuse in childhood; Z62.812 Personal history of neglect in childhood; Z88.0 Allergy status to penicillin

== ENCOUNTER 2017-03-22 06:53 | Emergency (ER) | payer OTHER ==
[~2017-03-22] VITALS: Ht 175.3 cm; Wt 90.0 kg
[~2017-03-22 06:53] MED LIST changes: +ABIL1TAB11 PO; +ACAM0.05 PO; +DEPA250T32 PO; +FLUO20CA19 PO; -FLUO20CA9 PO; +FOLI1TAB4 PO; +GABA-282 PO; -HYDR-4274 PO; +HYDR50TA70 PO; +LEXA1TAB2 PO; +MAALSUS20 PO; +MILKSUS PO; +THERTAB30 PO; +TRAZ-136 PO; +TRAZ50TA11 PO; -TRAZ50TA4 PO; +TYLE325T5 PO; +ZOLO100T PO
[2017-03-22] MEDS ORDERED: LITH300C PO (07:06)
[2017-03-22] MEDS ORDERED: VIAG100T PO (07:06)
[2017-03-22] MEDS ORDERED: atarax PO (07:06)
[2017-03-22] MEDS ORDERED: AMBI10TA PO (07:06)
[2017-03-22] MEDS ORDERED: ADDE10CA3 PO (07:06)
[2017-03-22] MEDS ORDERED: PANTOPRAZOLE 40MG INJ (PROTONIX) (C9113) IV ONE (08:15)
[2017-03-22] MEDS ORDERED: SUCRALFATE SUSP 1GM/10ML UD PO ONE (08:15)
[2017-03-22] MEDS ORDERED: ONDANSETRON 4MG/2ML VIAL (J2405) IV ONE (08:15)
[2017-03-22] MEDS ORDERED: NS 1,000 ML IV ONE (08:15)
[2017-03-22 09:05] LABS: BASO % 0.2 % (0.0-1.0); EOS # 0.1 K/mm3 (0.0-0.50); EOS % 0.7 % (0.0-3.0); LARGE UNSTAINED CELL # 0.1 K/mm3 (0.0-0.4); LARGE UNSTAINED CELL % 1.1 % (0.0-4.0); LYMPH # 0.9 K/mm3 (1.5-6.5); MEAN CORPUSCULAR HEMOGLOBIN 30.4 pg (27.0-33.0); MEAN CORPUSCULAR HGB CONC 33.6 g/dl (32.0-36.5); MEAN CORPUSCULAR VOLUME 90.5 fl (80.0-96.0); MONO # 0.4 K/mm3 (0.0-0.8); MONO % 5.2 % (0.0-5.0); NEUTROPHILS # 6.4 K/mm3 (1.8-7.7); NEUTROPHILS % 80.8 % (36.0-66.0); PLATELET COUNT, AUTOMATED 167 k/mm3 (150-450); RED CELL DISTRIBUTION WIDTH 13.3 % (11.5-14.5); WHITE BLOOD COUNT 7.8 K/mm3 (4.0-10.0)
[2017-03-22 09:14] LABS: ALBUMIN 4.3 GM/DL (3.2-5.2); ALBUMIN/GLOBULIN RATIO 1.05 (1.00-1.93); ALKALINE PHOSPHATASE 53 U/L (45-117); ALT/SGPT 54 U/L (12-78); AMYLASE 62 U/L (25-115); ANION GAP 9 MEQ/L (8-16); AST/SGOT 20 U/L (15-37); BILIRUBIN,DIRECT 0.1 MG/DL (0.0-0.2); BILIRUBIN,TOTAL 0.4 MG/DL (0.2-1.0); BLOOD UREA NITROGEN 12 MG/DL (7-18); CALCIUM LEVEL 9.1 MG/DL (8.5-10.1); CARBON DIOXIDE LEVEL 28 MEQ/L (21-32); CHLORIDE LEVEL 105 MEQ/L (98-107); GLOMERULAR FILTRATION RATE > 60.0 (>60); GLUCOSE, FASTING 92 MG/DL (70-105); POTASSIUM SERUM 4.6 MEQ/L (3.5-5.1); SODIUM LEVEL 142 MEQ/L (136-145); TOTAL PROTEIN 8.4 GM/DL (6.4-8.2)
[2017-03-22 09:31] LABS: INR 0.97
[2017-03-22] MEDS ORDERED: PROT1TAB2 PO (09:35)
[2017-03-22] MEDS ORDERED: SUCR1SS PO (09:35)
[2017-03-22] MEDS ORDERED: ZOFR4TAB3 PO (09:35)
[2017-03-22 09:51] VITALS: BP 129/75
[2017-05-24] MEDS ORDERED: BUPR150T3 PO (13:32)
== END 2017-03-22 09:57 | disposition home or self-care (01) ==
LOC: M ED 06:53
DX: K27.0 Acute peptic ulcer, site unspecified, with hemorrhage (principal); R11.10 Vomiting, unspecified; R19.7 Diarrhea, unspecified; F41.9 Anxiety disorder, unspecified; F31.9 Bipolar disorder, unspecified; Z79.899 Other long term (current) drug therapy
CPT/HCPCS: 80048; 80076; 80178; 81001; 82150; 83690; 85025; 85610; 85730; 86850; 86900; 86901; 96361; 96374; 96375; 99283; C9113; J2405

== ENCOUNTER 2017-03-26 22:13 | Emergency (ER) | payer OTHER ==
[~2017-03-26] VITALS: Ht 175.3 cm; Wt 89.5 kg
[~2017-03-26 22:13] MED LIST changes: +ADDE10CA3 PO; +AMBI10TA PO; +LITH300C PO; +PROT1TAB2 PO; +SUCR1SS PO; +VIAG100T PO; +ZOFR4TAB3 PO; +atarax PO
[2017-03-26 23:45] LABS: BASO % 0.5 % (0.0-1.0); EOS # 0.1 K/mm3 (0.0-0.50); EOS % 1.2 % (0.0-3.0); LARGE UNSTAINED CELL # 0.2 K/mm3 (0.0-0.4); LARGE UNSTAINED CELL % 2.1 % (0.0-4.0); LYMPH # 1.9 K/mm3 (1.5-6.5); LYMPH % 24.9 % (24.0-44.0); MEAN CORPUSCULAR HEMOGLOBIN 29.9 pg (27.0-33.0); MEAN CORPUSCULAR HGB CONC 32.4 g/dl (32.0-36.5); MEAN CORPUSCULAR VOLUME 92.3 fl (80.0-96.0); MONO # 0.6 K/mm3 (0.0-0.8); MONO % 8.2 % (0.0-5.0); NEUTROPHILS # 4.4 K/mm3 (1.8-7.7); NEUTROPHILS % 63.2 % (36.0-66.0); PLATELET COUNT, AUTOMATED 151 k/mm3 (150-450); RED CELL DISTRIBUTION WIDTH 13.5 % (11.5-14.5)
[2017-03-27 00:12] LABS: ALBUMIN 4.5 GM/DL (3.2-5.2); ALBUMIN/GLOBULIN RATIO 1.15 (1.00-1.93); ALKALINE PHOSPHATASE 59 U/L (45-117); ALT/SGPT 58 U/L (12-78); AMYLASE 49 U/L (25-115); ANION GAP 6 MEQ/L (8-16); AST/SGOT 20 U/L (15-37); BILIRUBIN,DIRECT 0.1 MG/DL (0.0-0.2); BILIRUBIN,TOTAL 0.4 MG/DL (0.2-1.0); BLOOD UREA NITROGEN 10 MG/DL (7-18); CALCIUM LEVEL 9.4 MG/DL (8.5-10.1); CARBON DIOXIDE LEVEL 31 MEQ/L (21-32); CHLORIDE LEVEL 105 MEQ/L (98-107); CREATININE FOR GFR 0.92 MG/DL (0.70-1.30); GLOMERULAR FILTRATION RATE > 60.0 (>60); GLUCOSE, FASTING 86 MG/DL (70-105); POTASSIUM SERUM 3.7 MEQ/L (3.5-5.1); SODIUM LEVEL 142 MEQ/L (136-145); TOTAL PROTEIN 8.4 GM/DL (6.4-8.2)
[2017-03-27] MEDS ORDERED: ISOVUE-370 76% 100ML VIAL (Q9967) As Ordered ONE (00:23)
--- NOTE | 2017-03-27 01:00 | REPUSA ---
CLINICAL HISTORY: Abdominal pain. TECHNIQUE: Multiple axial, sagittal and coronal CT images were obtained through the abdomen and pelvi s after administration of ntravenous contrast material. COMMENTS: The liver is of uniform attenuation without mass or defect. There is no intra or extrahepatic biliary ductal dilatation. The spleen is enlarged, 15 cm. The gallbladder is contracted. The pancreas is of normal contour and attenuation characteristics. There is no evidence of adrenal mass. Both kidneys demonstrate prompt and equal nephrograms. The kidneys are normal in size, shape and conf iguration. There is no evidence of renal or ureteral mass. No renal or ureteral calculi are identifie d. There is no hydroureter or hydronephrosis. No evidence for appendicitis. There is severe wall thickening noted involving all small bowel segmen ts compatible with enteritis. No evidence for small or large bowel obstruction. There is no evidence of abdominal ascites or lymphadenopathy. There is no evidence of intrinsic or extrinsic bladder mass. There is no pelvic ascites or lymphadeno darren. Images of the lung bases show no evidence of pleural or parenchymal mass. There are no pleural effusi ons. The bony structures are free of lytic or blastic lesions. IMPRESSION: Mild splenomegaly. Severe enteritis.Infectious and inflammatory etiologies are considered. Consider consultation with GI service. Thank you for your kind referral of this patient.
[2017-03-27 01:15] VITALS: BP 134/96
[2017-05-24] MEDS ORDERED: BUPR150T3 PO (13:32)
== END 2017-03-27 01:28 | disposition home or self-care (01) ==
LOC: M ED 22:13
DX: K52.9 Noninfective gastroenteritis and colitis, unspecified (principal); F31.9 Bipolar disorder, unspecified; Z88.0 Allergy status to penicillin; Z79.899 Other long term (current) drug therapy
CPT/HCPCS: 74177; 80048; 80076; 82150; 83690; 85025; 99283; Q9967

== ENCOUNTER 2017-05-31 11:19 | Day surgery (SDC) | payer OTHER ==
[~2017-05-31] VITALS: Ht 175.3 cm; Wt 90.7 kg
[~2017-05-31 11:19] MED LIST changes: +BUPR150T3 PO
[2017-05-31] MEDS ORDERED: NS 1,000 ML IV ONE (12:15)
[2017-05-31] MEDS ORDERED: PROPOFOL 200 MG/20 ML VIAL As Ordered ONE ×2 (12:23→13:41)
[2017-05-31] MEDS ORDERED: LIDOCAINE 2% INJ 100 MG/5 ML SDV (FOR ANES.) As Ordered ONE (12:23)
[2017-05-31] MEDS ORDERED: GLYCOPYRROLATE INJ 0.2 MG/ML 2 ML VIAL As Ordered ONE (13:14)
[2017-05-31] MEDS ORDERED: fentaNYL 100 MCG/2 ML INJECTION (J3010) As Ordered ONE (13:21)
--- NOTE | 2017-05-31 14:11 | ROOR ---
Patient Name: Jason Cunningham Procedure Date: 05/31/2017 1:23 PM Date of : 1995 Age: 22 Room: [facility] Gender: Male Note Status: Finalized Procedure: Upper GI endoscopy Indications: Recent gastrointestinal bleeding, Hematemesis Providers: Chai Green MD Referring MD: DEJA BRODY MD Requesting Provider: Medicines: Monitored Anesthesia Care Complications: No immediate complications. Procedure: Pre-Anesthesia Assessment: - Prior to the procedure, a History and Physical was performed, and patient medications and allergies were reviewed. The patient is competent. The risks and benefits of the procedure and the sedation options and risks were discussed with the patient. All questions were answered and informed consent was obtained. Patient identification and proposed procedure were verified by the physician, the nurse and the extension associate in the procedure room. Mental Status Examination: alert and oriented. Airway Examination: normal oropharyngeal airway and neck mobility. Respiratory Examination: clear to auscultation. CV Examination: normal. Prophylactic Antibiotics: The patient does not require prophylactic antibiotics. Prior Anticoagulants: The patient has taken no previous anticoagulant or antiplatelet agents. ASA Grade Assessment: II - A patient with mild systemic disease. After reviewing the risks and benefits, the patient was deemed in satisfactory condition to undergo the procedure. The anesthesia plan was to use monitored anesthesia care (MAC). Immediately prior to administration of medications, the patient was re-assessed for adequacy to receive sedatives. The heart rate, respiratory rate, oxygen saturations, blood pressure, adequacy of pulmonary ventilation, and response to care were monitored throughout the procedure. The physical status of the patient was re-assessed after the procedure. The Endoscope was introduced through the mouth, and advanced to the second part of duodenum. The upper GI endoscopy was accomplished without difficulty. The patient tolerated the procedure well. Findings: LA Grade B (one or more mucosal breaks greater than 5 mm, not extending between the tops of two mucosal folds) esophagitis with no bleeding was found in the distal esophagus. Biopsies were taken with a cold forceps for histology. Verification of patient identification for the specimen was done by the physician and nurse using the patient's name, date and medical record number. Estimated blood loss was minimal. Diffuse mildly erythematous mucosa without bleeding was found in the gastric antrum. Biopsies were taken with a cold forceps for histology. No gross lesions were noted in the duodenal bulb and in the second portion of the duodenum. Biopsies for histology were taken with a cold forceps for evaluation of celiac disease. Impression: - LA Grade B reflux esophagitis. Biopsied. - Erythematous mucosa in the antrum. Biopsied. - No gross lesions in the duodenal bulb and in the second portion of the duodenum. Biopsied. Recommendation: - Patient has a contact number available for emergencies. The signs and symptoms of potential delayed complications were discussed with the patient. Return to normal activities tomorrow. Written discharge instructions were provided to the patient. - Resume previous diet. - Continue present medications. - Await pathology results. 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 - Follow an antireflux regimen. - Repeat upper endoscopy in 1 year to check healing. - Return to GI clinic as previously scheduled on 06/16/2017 at 10:00 AM. - Return to primary care physician. Chai Green MD Chai Green MD 05/31/2017 2:11:22 PM This report has been signed electronically. Number of Addenda: 0 Note Initiated On: 05/31/2017 1:23 PM Estimated Blood Loss: Estimated blood loss was minimal.
--- NOTE | 2017-05-31 14:18 | ROOR ---
Patient Name: Jason Colon Procedure Date: 05/31/2017 1:24 PM Date of : 1995 Age: 22 Room: [facility] Gender: Male Note Status: Finalized Procedure: Colonoscopy Indications: Hematochezia Providers: Chai Green MD Referring MD: DEJA BRODY MD Requesting Provider: Medicines: Monitored Anesthesia Care Complications: No immediate complications. Procedure: Pre-Anesthesia Assessment: - Prior to the procedure, a History and Physical was performed, and patient medications and allergies were reviewed. The patient is competent. The risks and benefits of the procedure and the sedation options and risks were discussed with the patient. All questions were answered and informed consent was obtained. Patient identification and proposed procedure were verified by the physician, the nurse and the asbestos worker in the procedure room. Mental Status Examination: alert and oriented. Airway Examination: normal oropharyngeal airway and neck mobility. Respiratory Examination: clear to auscultation. CV Examination: normal. Prophylactic Antibiotics: The patient does not require prophylactic antibiotics. Prior Anticoagulants: The patient has taken no previous anticoagulant or antiplatelet agents. ASA Grade Assessment: II - A patient with mild systemic disease. After reviewing the risks and benefits, the patient was deemed in satisfactory condition to undergo the procedure. The anesthesia plan was to use monitored anesthesia care (MAC). Immediately prior to administration of medications, the patient was re-assessed for adequacy to receive sedatives. The heart rate, respiratory rate, oxygen saturations, blood pressure, adequacy of pulmonary ventilation, and response to care were monitored throughout the procedure. The physical status of the patient was re-assessed after the procedure. The Colonoscope was introduced through the anus and advanced to the terminal ileum, with identification of the appendiceal orifice and IC valve. The colonoscopy was performed without difficulty. The patient tolerated the procedure well. The quality of the bowel preparation was good. The terminal ileum, ileocecal valve, appendiceal orifice, and rectum were photographed. Scope insertion time was 4 minutes. Scope withdrawal time was 8 minutes. The total duration of the procedure was 12 minutes. Findings: The perianal exam findings include Hyperpigmented mole on left buttock. The terminal ileum appeared normal. A patchy area of moderately erythematous mucosa was found in the rectum. Biopsies were taken with a cold forceps for histology. Verification of patient identification for the specimen was done by the physician and nurse using the patient's name, date and medical record number. Estimated blood loss was minimal. The exam was otherwise normal throughout the examined colon. Impression: - Hyperpigmented mole on left buttock. found on perianal exam. - The examined portion of the ileum was normal. - Erythematous mucosa in the rectum. Biopsied. Recommendation: - Patient has a contact number available for emergencies. The signs and symptoms of potential delayed complications were discussed with the patient. Return to normal activities tomorrow. Written discharge instructions were provided to the patient. - Resume previous diet. - Continue present medications. - Await pathology results. - Repeat colonoscopy at age 50 for screening purposes. - Return to primary care physician. - Return to GI clinic as previously scheduled on 06/16/2017 at 10:00 AM. - Refer to [facility] for evaluation of the mole at appointment to be scheduled. Chai Green MD Chai Green MD 05/31/2017 2:18:04 PM This report has been signed electronically. Number of Addenda: 0 Note Initiated On: 05/31/2017 1:24 PM Estimated Blood Loss: Estimated blood loss was minimal.
[2017-05-31 14:56] VITALS: BP 116/65
== END 2017-05-31 14:50 | disposition home or self-care (01) ==
LOC: M OPP 11:19 → EDSTATUS 12:30 → M OPP 14:50
PROVIDERS: ATTEND Internal Medicine Gastroenterology
DX: K92.1 Melena (principal); K62.89 Other specified diseases of anus and rectum; L81.9 Disorder of pigmentation, unspecified; K92.0 Hematemesis; K92.2 Gastrointestinal hemorrhage, unspecified; K31.89 Other diseases of stomach and duodenum; K21.0 Gastro-esophageal reflux disease with esophagitis; F31.9 Bipolar disorder, unspecified; F90.9 Attention-deficit hyperactivity disorder, unspecified type; G47.00 Insomnia, unspecified; R06.83 Snoring; Z88.0 Allergy status to penicillin; Z79.899 Other long term (current) drug therapy
CPT/HCPCS: 43239; 45380; 88305; J3010

== ENCOUNTER 2018-09-03 10:23 | Emergency (ER) | payer OTHER ==
[~2018-09-03] VITALS: Ht 175.3 cm; Wt 99.1 kg
[~2018-09-03 10:23] MED LIST changes: +FOLI1TAB11 PO; -FOLI1TAB4 PO; -GABA-282 PO; +GABA-843 PO; +MILK120011 PO; -MILKSUS PO; -TRAZ-136 PO; +TRAZ-160 PO; +TRAZ-163 PO; -TRAZ50TA11 PO; +ZOFR4TAB14 PO; -ZOFR4TAB3 PO
[2018-09-03] MEDS ORDERED: INVE117I IM (10:28)
[2018-09-03] MEDS ORDERED: ESCI20TA PO (10:28)
[2018-09-03 11:12] LABS: BASO % 0.4 % (0.0-1.0); EOS # 0.2 10^3/uL (0.0-0.50); EOS % 2.8 % (0.0-3.0); HEMATOCRIT 42.6 % (42.0-52.0); LYMPH # 1.4 10^3/uL (1.5-6.5); LYMPH % 26.7 % (24.0-44.0); MEAN CORPUSCULAR HEMOGLOBIN 28.5 pg (27.0-33.0); MEAN CORPUSCULAR HGB CONC 32.9 g/dl (32.0-36.5); MEAN CORPUSCULAR VOLUME 86.8 fl (80.0-96.0); MONO # 0.4 10^3/uL (0.0-0.8); MONO % 7.5 % (0.0-5.0); NEUTROPHILS # 3.3 10^3/uL (1.8-7.7); NEUTROPHILS % 62.2 % (36.0-66.0); PLATELET COUNT, AUTOMATED 153 10^3/uL (150-450); RED BLOOD COUNT 4.91 10^6/uL (4.30-6.10); WHITE BLOOD COUNT 5.3 10^3/uL (4.0-10.0)
[2018-09-03 12:02] VITALS: BP 142/86
[2018-09-03 12:06] LABS: ALBUMIN 4.3 GM/DL (3.2-5.2); ALT/SGPT 83 U/L (12-78); BILIRUBIN,DIRECT 0.2 MG/DL (0.0-0.2); BILIRUBIN,TOTAL 0.7 MG/DL (0.2-1.0); BLOOD UREA NITROGEN 11 MG/DL (7-18); CALCIUM LEVEL 9.3 MG/DL (8.5-10.1); CARBON DIOXIDE LEVEL 27 MEQ/L (21-32); CHLORIDE LEVEL 105 MEQ/L (98-107); CREATININE FOR GFR 0.93 MG/DL (0.70-1.30); GLOMERULAR FILTRATION RATE > 60.0 (>60); GLUCOSE, FASTING 96 MG/DL (70-100); POTASSIUM SERUM 4.1 MEQ/L (3.5-5.1); SODIUM LEVEL 139 MEQ/L (136-145); TOTAL PROTEIN 8.2 GM/DL (6.4-8.2)
--- NOTE | 2018-09-03 12:37 | REP ---
CHEST PA/LATERAL: 09/03/2018. COMPARISON: 03/10/2017, 09/07/2015. CLINICAL HISTORY: Left-sided chest pain. FINDINGS: Lung gauthier are well inflated and without infiltrate, effusion, atelectasis, or mass. The heart, mediastinal and hilar contours, aorta and airway are grossly intact. Bony thorax unremarkable. There is no free air under the diaphragm. IMPRESSION: 1. No acute cardiopulmonary change. Electronically Signed by Kervin Barcenas MD 09/03/2018 06:56 P
--- NOTE | 2018-09-03 16:42 | ECGEPIP ---
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 Order Number: [id number] Reading MD: Jeny Rodriguez Measurements Intervals [place] Rate: 57 P: 50 NJ: 156 QRS: 47 QRSD: 86 T: 36 QT: 393 QTc: 386 Interpretive Statements SINUS BRADYCARDIA EARLY REPOLARIZATION INCREASED RATE 09/07/15 Electronically Signed On 09-03-2018 16:42:06 EST by Jeny Rodriguez
[2018-09-04 08:43] LABS: VITAMIN B12 LEVEL 843 PG/ML (247-911)
== END 2018-09-03 12:55 | disposition home or self-care (01) ==
LOC: M ED 10:23
DX: R07.89 Other chest pain (principal); M79.643 Pain in unspecified hand; R00.1 Bradycardia, unspecified; F31.9 Bipolar disorder, unspecified; F43.10 Post-traumatic stress disorder, unspecified; Z79.899 Other long term (current) drug therapy; Z88.0 Allergy status to penicillin